=== PATIENT | female | born 1990 | race Caucasian/White ===

== ENCOUNTER 2017-08-21 21:15 | Inpatient (IN) | payer OTHER, MEDICAID ==
[~2017-08-21] VITALS: Ht 175.3 cm; Wt 114.8 kg
[2017-08-21] MEDS ORDERED: PROZ10 PO (21:29)
[2017-08-21 21:43] LABS: BASOPHILS # (AUTO) 0.07 K/uL (0.00-0.20); BASOPHILS % (AUTO) 0.7 % (0.0-2.0); EOSINOPHILS # (AUTO) 0.14 K/uL (0.00-0.70); EOSINOPHILS % (AUTO) 1.42 % (1.0-6.0); HEMOGLOBIN 15.6 g/dL (12.0-16.0); LYMPHOCYTES # (AUTO) 2.2 K/uL (1.0-4.8); LYMPHOCYTES % (AUTO) 21.9 % (22.0-44.0); MEAN CORPUSCULAR HEMOGLOBIN 31.2 pg (26.0-34.0); MEAN CORPUSCULAR HGB CONC 33.8 G/dL (31.0-37.0); MEAN CORPUSCULAR VOLUME 92 fL (80-100); MONOCYTES # (AUTO) 0.6 K/uL (0.1-1.0); MONOCYTES % (AUTO) 6.3 % (2.0-9.0); NEUTROPHILS % (AUTO) 69.6 % (40.0-70.0); PLATELET COUNT (AUTO) 300 K/uL (150-450); RED BLOOD CELL COUNT(AUTO) 4.99 MIL/uL (4.00-5.20); RED CELL DISTRIBUTION WIDTH 12.8 % (11.5-14.5); WHITE BLOOD COUNT (AUTO) 10.1 K/uL (4.5-11.0)
[2017-08-21 22:08] LABS: ANION GAP 11 mmol/L (8-16); CALCIUM, TOTAL 8.9 mg/dL (8.8-10.5); CARBON DIOXIDE 23 mmol/L (22-29); CHLORIDE 103 mmol/L (98-107); CREATININE 0.97 mg/dL (0.60-1.30); GLOMERULAR FILTR. RATE CALC > 60 mL/min (>60); POTASSIUM 4.1 mmol/L (3.5-5.1); SODIUM SERUM 137 mmol/L (136-145); UREA NITROGEN, BLOOD 13 mg/dL (7-18)
[2017-08-21 22:14] LABS: ALANINE AMINOTRANSFERASE 52 U/L (12-78); ALBUMIN 4.1 g/dL (3.4-5.0); ASPARTATE AMINOTRANSFERASE 27 U/L (15-37); BILIRUBIN,TOTAL 0.4 mg/dL (0.1-1.0); TOTAL PROTEIN, SERUM 7.3 g/dL (6.4-8.2)
[2017-08-21] MEDS ORDERED: LORazepam 2 MG TABLET PO ONE (23:00)
[2017-08-22] MEDS ORDERED: ZOLPIDEM TARTRATE 10 MG TABLET PO PRN
[2017-08-22] MEDS ORDERED: HALOPERIDOL 5 MG TABLET PO PRN
[2017-08-22 01:53] VITALS: BP 131/75
[2017-08-22] MEDS: ESTRADIOL 1 MG TABLET PO SCH (09:50)
[2017-08-22] MEDS: SPIRONOLACTONE 50 MG TABLET PO SCH ×2 (09:50→17:36)
[2017-08-22 09:52] LABS: APPEARANCE,URINE CLEAR (CLEAR); GLUCOSE, URINE (UA) NEGATIVE (NEGATIVE); KETONES,URINE 15 mg/dL (NEGATIVE); LEUKOCYTE ESTERASE ,URINE NEGATIVE (NEGATIVE); OCCULT BLOOD,URINE NEGATIVE (NEGATIVE); PH,URINE 5.5 (5.0-8.0); PROTEIN,URINE NEGATIVE (NEGATIVE)
[2017-08-22 09:54] LABS: ADD UA MICROSCOPIC YES
[2017-08-22 09:58] LABS: RBC,URINE None Seen /HPF (0-2); SQUAMOUS EPITHELIAL CELL,UR Few /LPF (None Seen)
[2017-08-22 12:57] VITALS: BP 112/71
[2017-08-22] MEDS: CITALOPRAM HYDROBROMIDE 20 MG TABLET PO SCH (16:00)
[2017-08-22 16:17] VITALS: BP 119/72
[2017-08-23 00:35] VITALS: BP 119/76
[2017-08-23] MEDS: SPIRONOLACTONE 50 MG TABLET PO SCH ×2 (08:14→16:50)
[2017-08-23] MEDS: ESTRADIOL 1 MG TABLET PO SCH (08:14)
[2017-08-23] MEDS: CITALOPRAM HYDROBROMIDE 20 MG TABLET PO SCH (09:00)
[2017-08-23 09:41] VITALS: BP 111/67
[2017-08-23] MEDS: LORazepam 2 MG TABLET PO PRN (20:24)
[2017-08-23 21:32] VITALS: BP 124/84
[2017-08-24 03:47] VITALS: BP 117/72
[2017-08-24] MEDS: LORazepam 2 MG TABLET PO PRN ×2 (03:47→20:27)
[2017-08-24 08:00] VITALS: BP 110/54
[2017-08-24] MEDS: CITALOPRAM HYDROBROMIDE 20 MG TABLET PO SCH ×2 (09:00→09:01)
[2017-08-24] MEDS: SPIRONOLACTONE 50 MG TABLET PO SCH ×2 (09:01→16:13)
[2017-08-24] MEDS: ESTRADIOL 1 MG TABLET PO SCH (09:01)
[2017-08-24 17:00] VITALS: BP 146/60
[2017-08-25 08:30] VITALS: BP 121/77
[2017-08-25] MEDS: SPIRONOLACTONE 50 MG TABLET PO SCH (08:42)
[2017-08-25] MEDS: CITALOPRAM HYDROBROMIDE 20 MG TABLET PO SCH (08:42)
[2017-08-25] MEDS: ESTRADIOL 1 MG TABLET PO SCH (08:42)
[2017-08-25] MEDS: LORazepam 2 MG TABLET PO PRN (12:50)
== END 2017-08-25 14:36 | disposition left against medical advice (07) | DRG 881 ==
LOC: EMS 21:18 → 3EI 08-22 00:45 → 3EX 08-23 09:36
PROVIDERS: ADMIT Psychiatry & Neurology Child & Adolescent Psychiatry; ATTEND Psychiatry & Neurology Child & Adolescent Psychiatry
DX: F32.9 Major depressive disorder, single episode, unspecified (principal); R45.851 Suicidal ideations; F12.90 Cannabis use, unspecified, uncomplicated; F64.9 Gender identity disorder, unspecified; G89.29 Other chronic pain; K59.00 Constipation, unspecified; Z79.890 Hormone replacement therapy; F41.9 Anxiety disorder, unspecified; Z84.89 Family history of other specified conditions; Z53.21 Procedure and treatment not carried out due to patient leaving prior to being seen by health care provider
CPT/HCPCS: 80307; 99285; G0480

== ENCOUNTER 2020-02-19 14:48 | Inpatient (IN) | payer MEDICAID, OTHER ==
[~2020-02-19] VITALS: Ht 175.3 cm; Wt 96.7 kg
[2020-02-19] MEDS ORDERED: SERT50TA12 PO (16:21)
[2020-02-19] MEDS ORDERED: SPIR50 PO (16:21)
[2020-02-19] MEDS ORDERED: HYD50 PO (16:22)
[2020-02-19] MEDS ORDERED: HALOPERIDOL 5 MG TABLET PO PRN (17:15)
[2020-02-19 17:36] VITALS: BP 129/65
[2020-02-19 22:08] VITALS: BP 131/74
[2020-02-19] MEDS: LORazepam 2 MG TABLET PO PRN (22:26)
[2020-02-20] MEDS: DULoxetine HCL 20 MG CAPSULE PO SCH (09:56)
[2020-02-20 10:10] LABS: BASOPHILS % (AUTO) 0.6 % (0.0-2.0); EOSINOPHILS % (AUTO) 1.1 % (1.0-6.0); HEMATOCRIT 45.5 % (36-46); HEMOGLOBIN 15.3 g/dL (12.0-16.0); LYMPHOCYTES # (AUTO) 1.5 K/uL (1.0-4.8); MEAN CORPUSCULAR HEMOGLOBIN 30.8 pg (26.0-34.0); MEAN CORPUSCULAR HGB CONC 33.7 G/dL (31.0-37.0); MEAN CORPUSCULAR VOLUME 91 fL (80-100); MONOCYTES # (AUTO) 0.5 K/uL (0.1-1.0); NEUTROPHILS # (AUTO) 4.1 K/uL (1.8-7.7); NEUTROPHILS % (AUTO) 66.3 % (40.0-70.0); PLATELET COUNT (AUTO) 244 K/uL (150-450); RED BLOOD CELL COUNT(AUTO) 4.99 MIL/uL (4.00-5.20); RED CELL DISTRIBUTION WIDTH 12.8 % (11.5-14.5)
[2020-02-20 10:14] LABS: HEMOGLOBIN A1C 5.3 % (3.8-5.6)
[2020-02-20 10:30] VITALS: BP 128/79
[2020-02-20 10:32] LABS: ALANINE AMINOTRANSFERASE 30 U/L (12-78); ALBUMIN 3.8 g/dL (3.4-5.0); ALKALINE PHOSPHATASE 38 U/L (46-116); ANION GAP 4 mmol/L (8-16); ASPARTATE AMINOTRANSFERASE 19 U/L (15-37); BILIRUBIN,TOTAL 0.4 mg/dL (0.1-1.0); CALCIUM, TOTAL 9.1 mg/dL (8.8-10.5); CARBON DIOXIDE 30 mmol/L (22-29); CHLORIDE 104 mmol/L (98-107); CHOL/HDL RATIO 3.7 (3.9-5.7); CHOLESTEROL 202 mg/dL (131-200); CREATININE 0.85 mg/dL (0.60-1.30); FREE T4 (FREE THYROXINE) 0.95 ng/dL (0.76-1.46); GLOMERULAR FILTR. RATE CALC > 60 mL/min (>60); GLUCOSE,RANDOM 115 mg/dL (70-110); HDL CHOLESTEROL 55 mg/dL (40-60); LDL CHOL (CALC.) 131 mg/dL (0-130); POTASSIUM 4.2 mmol/L (3.5-5.1); SODIUM SERUM 138 mmol/L (136-145); THYROID STIMULATING HORMONE 1.06 uIU/mL (0.36-3.74); TOTAL PROTEIN, SERUM 6.8 g/dL (6.4-8.2); TRIGLYCERIDES 81 mg/dL (15-150); UREA NITROGEN, BLOOD 15 mg/dL (7-18)
[2020-02-20] MEDS ORDERED: ESTR-95 PO (14:20)
[2020-02-20] MEDS: ESTRADIOL 1 MG TABLET PO SCH (16:34)
[2020-02-20] MEDS: SPIRONOLACTONE 50 MG TABLET PO SCH (16:34)
[2020-02-20 16:55] VITALS: BP 120/59
[2020-02-20 19:28] LABS: APPEARANCE,URINE CLEAR (CLEAR); BILIRUBIN,URINE NEGATIVE (NEGATIVE); GLUCOSE, URINE (UA) NEGATIVE (NEGATIVE); KETONES,URINE NEGATIVE (NEGATIVE); LEUKOCYTE ESTERASE ,URINE NEGATIVE (NEGATIVE); NITRATE,URINE NEGATIVE (NEGATIVE); OCCULT BLOOD,URINE NEGATIVE (NEGATIVE); PROTEIN,URINE NEGATIVE (NEGATIVE)
[2020-02-20 20:00] LABS: AMPHET/METH SCREEN,URINE NEGATIVE (NEGATIVE); BARBITURATE SCREEN, URINE NEGATIVE (NEGATIVE); BENZODIAZEPINES SCREEN,URINE NEGATIVE (NEGATIVE); CANNABINOID SCREEN,URINE POSITIVE (NEGATIVE); COCAINE SCREEN,URINE NEGATIVE (NEGATIVE); METHADONE SCREEN, URINE NEGATIVE (NEGATIVE); OPIATE SCREEN,URINE NEGATIVE (NEGATIVE)
[2020-02-20 20:05] LABS: PHENCYCLIDINE SCREEN,URINE NEGATIVE (NEGATIVE)
[2020-02-20] MEDS: LORazepam 2 MG TABLET PO PRN (20:55)
[2020-02-20] MEDS: ZOLPIDEM TARTRATE 10 MG TABLET PO PRN (22:28)
[2020-02-21] MEDS: DULoxetine HCL 20 MG CAPSULE PO SCH (09:21)
[2020-02-21] MEDS: ESTRADIOL 1 MG TABLET PO SCH ×3 (09:21→16:32)
[2020-02-21] MEDS: SPIRONOLACTONE 50 MG TABLET PO SCH ×2 (09:22→16:32)
[2020-02-21 09:56] VITALS: BP 121/72
[2020-02-21 17:26] VITALS: BP 116/71
[2020-02-21] MEDS: ZOLPIDEM TARTRATE 10 MG TABLET PO PRN (21:05)
[2020-02-22 04:08] VITALS: BP 128/73
[2020-02-22] MEDS: LORazepam 2 MG TABLET PO PRN (04:12)
[2020-02-22] MEDS: SPIRONOLACTONE 50 MG TABLET PO SCH ×2 (08:35→16:27)
[2020-02-22] MEDS: DULoxetine HCL 20 MG CAPSULE PO SCH (08:35)
[2020-02-22] MEDS: ESTRADIOL 1 MG TABLET PO SCH ×3 (08:36→16:27)
[2020-02-22 09:43] VITALS: BP 111/64
[2020-02-22 16:42] VITALS: BP 108/58
[2020-02-22] MEDS ORDERED: TraZODone HCL 50 MG TABLET PO SCH (21:00)
[2020-02-23 08:00] VITALS: BP 125/75
[2020-02-23] MEDS: DULoxetine HCL 20 MG CAPSULE PO SCH (09:01)
[2020-02-23] MEDS: SPIRONOLACTONE 50 MG TABLET PO SCH ×2 (09:02→16:27)
[2020-02-23] MEDS: ESTRADIOL 1 MG TABLET PO SCH ×3 (09:03→16:27)
[2020-02-23 16:28] VITALS: BP 106/65
[2020-02-23] MEDS: TraZODone HCL 100 MG TABLET PO SCH (20:29)
[2020-02-24 08:00] VITALS: BP 109/70
[2020-02-24] MEDS: DULoxetine HCL 20 MG CAPSULE PO SCH (08:26)
[2020-02-24] MEDS: ESTRADIOL 1 MG TABLET PO SCH ×3 (08:26→16:08)
[2020-02-24] MEDS: SPIRONOLACTONE 50 MG TABLET PO SCH ×2 (08:26→16:08)
[2020-02-24 16:31] VITALS: BP 117/56
[2020-02-24] MEDS: TraZODone HCL 100 MG TABLET PO SCH (20:14)
[2020-02-25] MEDS: SPIRONOLACTONE 50 MG TABLET PO SCH ×2 (08:27→16:22)
[2020-02-25] MEDS: ESTRADIOL 1 MG TABLET PO SCH ×3 (08:27→16:22)
[2020-02-25] MEDS: DULoxetine HCL 20 MG CAPSULE PO SCH (08:29)
[2020-02-25 10:49] VITALS: BP 119/66
[2020-02-25 17:51] VITALS: BP 114/58
[2020-02-25] MEDS: TraZODone HCL 100 MG TABLET PO SCH (20:21)
[2020-02-26 04:35] VITALS: BP 109/59
[2020-02-26] MEDS: ESTRADIOL 1 MG TABLET PO SCH ×3 (09:38→16:26)
[2020-02-26] MEDS: DULoxetine HCL 20 MG CAPSULE PO SCH (09:38)
[2020-02-26] MEDS: SPIRONOLACTONE 50 MG TABLET PO SCH ×2 (09:38→16:25)
[2020-02-26 10:32] VITALS: BP 102/62
[2020-02-26 16:35] VITALS: BP 110/60
[2020-02-26] MEDS: HYPROMELLOSE 0.5% 15 ML OPHTHALMIC SOLUTION OU PRN (17:27)
[2020-02-26] MEDS: TraZODone HCL 100 MG TABLET PO SCH (20:12)
[2020-02-27 00:30] VITALS: BP 115/73
[2020-02-27] MEDS: LORazepam 2 MG TABLET PO PRN ×2 (00:34→20:07)
[2020-02-27 08:30] VITALS: BP 98/53
[2020-02-27] MEDS: ESTRADIOL 1 MG TABLET PO SCH ×3 (09:07→16:23)
[2020-02-27] MEDS: DULoxetine HCL 20 MG CAPSULE PO SCH (09:07)
[2020-02-27] MEDS: SPIRONOLACTONE 50 MG TABLET PO SCH ×2 (09:08→16:23)
[2020-02-27] MEDS: HYPROMELLOSE 0.5% 15 ML OPHTHALMIC SOLUTION OU PRN ×2 (14:00→20:05)
[2020-02-27] MEDS: GABAPENTIN 100 MG CAPSULE PO SCH (16:25)
[2020-02-27 16:37] VITALS: BP 114/56
[2020-02-27] MEDS: TraZODone HCL 100 MG TABLET PO SCH (20:04)
[2020-02-28 08:00] VITALS: BP 120/69
[2020-02-28] MEDS: GABAPENTIN 100 MG CAPSULE PO SCH ×3 (09:00→17:00)
[2020-02-28] MEDS: SPIRONOLACTONE 50 MG TABLET PO SCH ×2 (09:08→16:31)
[2020-02-28] MEDS: ESTRADIOL 1 MG TABLET PO SCH ×3 (09:09→16:30)
[2020-02-28] MEDS: DULoxetine HCL 20 MG CAPSULE PO SCH (09:10)
[2020-02-28 17:05] VITALS: BP 141/49
[2020-02-28] MEDS: TraZODone HCL 100 MG TABLET PO SCH (20:49)
[2020-02-28] MEDS: LORazepam 2 MG TABLET PO PRN (20:50)
[2020-02-29] MEDS: GABAPENTIN 100 MG CAPSULE PO SCH ×2 (09:55→16:08)
[2020-02-29] MEDS: SPIRONOLACTONE 50 MG TABLET PO SCH ×2 (09:56→16:08)
[2020-02-29] MEDS: ESTRADIOL 1 MG TABLET PO SCH ×3 (09:56→16:08)
[2020-02-29] MEDS: DULoxetine HCL 20 MG CAPSULE PO SCH (10:01)
[2020-02-29 10:10] VITALS: BP 107/64
[2020-02-29 16:13] VITALS: BP 111/73
[2020-02-29] MEDS: HYPROMELLOSE 0.5% 15 ML OPHTHALMIC SOLUTION OU PRN (18:02)
[2020-02-29] MEDS: TraZODone HCL 100 MG TABLET PO SCH (20:55)
[2020-02-29] MEDS: LORazepam 2 MG TABLET PO PRN (20:55)
[2020-03-01] MEDS: DULoxetine HCL 20 MG CAPSULE PO SCH (09:04)
[2020-03-01] MEDS: GABAPENTIN 100 MG CAPSULE PO SCH ×2 (09:05→16:42)
[2020-03-01] MEDS: SPIRONOLACTONE 50 MG TABLET PO SCH ×2 (09:05→16:42)
[2020-03-01] MEDS: ESTRADIOL 1 MG TABLET PO SCH ×3 (09:06→16:42)
[2020-03-01 10:12] VITALS: BP 125/67
[2020-03-01 19:54] VITALS: BP 114/68
[2020-03-01] MEDS: TraZODone HCL 100 MG TABLET PO SCH (20:11)
[2020-03-01] MEDS: LORazepam 2 MG TABLET PO PRN (20:13)
[2020-03-02 08:14] VITALS: BP 129/73
[2020-03-02] MEDS: DULoxetine HCL 20 MG CAPSULE PO SCH (08:37)
[2020-03-02] MEDS: GABAPENTIN 100 MG CAPSULE PO SCH ×2 (08:37→16:45)
[2020-03-02] MEDS: SPIRONOLACTONE 50 MG TABLET PO SCH ×2 (08:37→16:45)
[2020-03-02] MEDS: ESTRADIOL 1 MG TABLET PO SCH ×3 (08:38→16:45)
[2020-03-02 16:25] VITALS: BP 101/55
[2020-03-02] MEDS: HYPROMELLOSE 0.5% 15 ML OPHTHALMIC SOLUTION OU PRN (18:55)
[2020-03-02] MEDS: TraZODone HCL 100 MG TABLET PO SCH (20:00)
[2020-03-02] MEDS: LORazepam 2 MG TABLET PO PRN (20:00)
[2020-03-03] MEDS: GABAPENTIN 300 MG CAPSULE PO SCH ×2 (09:15→16:35)
[2020-03-03] MEDS: ESTRADIOL 1 MG TABLET PO SCH ×3 (09:15→16:35)
[2020-03-03] MEDS: SPIRONOLACTONE 50 MG TABLET PO SCH ×2 (09:16→16:35)
[2020-03-03] MEDS: DULoxetine HCL 60 MG CAPSULE PO SCH (09:17)
[2020-03-03 09:41] VITALS: BP 109/63
[2020-03-03 16:11] VITALS: BP 108/67
[2020-03-03] MEDS: LORazepam 2 MG TABLET PO PRN (20:17)
[2020-03-03] MEDS: TraZODone HCL 100 MG TABLET PO SCH (20:17)
[2020-03-04 08:27] VITALS: BP 113/70
[2020-03-04] MEDS: SPIRONOLACTONE 50 MG TABLET PO SCH ×2 (09:08→16:00)
[2020-03-04] MEDS: DULoxetine HCL 60 MG CAPSULE PO SCH (09:09)
[2020-03-04] MEDS: ESTRADIOL 1 MG TABLET PO SCH ×3 (09:09→16:00)
[2020-03-04] MEDS: GABAPENTIN 300 MG CAPSULE PO SCH ×2 (09:09→16:01)
[2020-03-04 16:08] VITALS: BP 106/70
[2020-03-04] MEDS ORDERED: FAMOTIDINE 20 MG TABLET PO ONE (21:30)
[2020-03-04] MEDS: TraZODone HCL 100 MG TABLET PO SCH (21:38)
[2020-03-04] MEDS: LORazepam 2 MG TABLET PO PRN (22:00)
[2020-03-05] MEDS: FAMOTIDINE 20 MG TABLET PO SCH (08:17)
[2020-03-05] MEDS: GABAPENTIN 300 MG CAPSULE PO SCH ×2 (08:17→16:18)
[2020-03-05] MEDS: SPIRONOLACTONE 50 MG TABLET PO SCH ×2 (08:18→16:18)
[2020-03-05] MEDS: ESTRADIOL 1 MG TABLET PO SCH ×3 (08:18→16:18)
[2020-03-05] MEDS: DULoxetine HCL 60 MG CAPSULE PO SCH (08:19)
[2020-03-05 08:33] VITALS: BP 124/78
[2020-03-05 16:10] VITALS: BP 109/70
[2020-03-05] MEDS: TraZODone HCL 100 MG TABLET PO SCH (20:47)
[2020-03-05] MEDS: LORazepam 2 MG TABLET PO PRN (20:48)
[2020-03-06] MEDS: GABAPENTIN 300 MG CAPSULE PO SCH ×2 (08:23→16:09)
[2020-03-06] MEDS: ESTRADIOL 1 MG TABLET PO SCH ×3 (08:23→16:09)
[2020-03-06] MEDS: DULoxetine HCL 60 MG CAPSULE PO SCH (08:23)
[2020-03-06] MEDS: SPIRONOLACTONE 50 MG TABLET PO SCH ×2 (08:24→16:09)
[2020-03-06] MEDS: FAMOTIDINE 20 MG TABLET PO SCH (08:25)
[2020-03-06 09:00] VITALS: BP 118/83
[2020-03-06] MEDS ORDERED: HALOPERIDOL LACTATE 5 MG/ML VIAL ONE (17:56)
[2020-03-06] MEDS ORDERED: DiphenhydrAMINE HCL 50 MG/ML VIAL ONE (17:56)
[2020-03-06] MEDS ORDERED: LORazepam 2 MG/ML VIAL IM ONE (18:00)
[2020-03-06] MEDS ORDERED: HALOPERIDOL LACTATE 5 MG/ML VIAL IM ONE (18:00)
[2020-03-06] MEDS ORDERED: DiphenhydrAMINE HCL 50 MG/ML VIAL IM ONE (18:00)
[2020-03-06 19:33] VITALS: BP 107/65
[2020-03-06] MEDS: TraZODone HCL 100 MG TABLET PO SCH (20:00)
[2020-03-07] MEDS: GABAPENTIN 300 MG CAPSULE PO SCH (08:39)
[2020-03-07] MEDS: DULoxetine HCL 60 MG CAPSULE PO SCH (08:39)
[2020-03-07] MEDS: ESTRADIOL 1 MG TABLET PO SCH ×2 (08:39→12:47)
[2020-03-07] MEDS: FAMOTIDINE 20 MG TABLET PO SCH (08:39)
[2020-03-07] MEDS: SPIRONOLACTONE 50 MG TABLET PO SCH (08:40)
[2020-03-07 09:45] VITALS: BP 107/69
[2020-03-07] MEDS ORDERED: DULO60CA44 PO (12:19)
[2020-03-07] MEDS ORDERED: GABA-1181 PO (12:19)
[2020-03-07] MEDS ORDERED: TRAZ-257 PO (12:19)
[2020-03-07] MEDS ORDERED: FAMO20 PO (12:22)
== END 2020-03-07 14:59 | disposition home or self-care (01) | DRG 885 ==
LOC: 3EI 17:20
PROVIDERS: ADMIT Psychiatry & Neurology Psychiatry; ATTEND Psychiatry & Neurology Psychiatry
DX: F33.2 Major depressive disorder, recurrent severe without psychotic features (principal); R45.851 Suicidal ideations; F12.10 Cannabis abuse, uncomplicated; F64.1 Dual role transvestism; E78.00 Pure hypercholesterolemia, unspecified; F22 Delusional disorders; F41.9 Anxiety disorder, unspecified; Z59.0 Homelessness; Z79.890 Hormone replacement therapy; Z87.891 Personal history of nicotine dependence; Z91.5 Personal history of self-harm
CPT/HCPCS: 80307; 83036; 84439; 84443; 87081; J1200; J1630; J2060

== ENCOUNTER 2020-02-19 18:42 | Emergency (ER) | payer MEDICAID, OTHER ==
[~2020-02-19] VITALS: Ht 175.3 cm; Wt 97.7 kg
[~2020-02-19 18:42] MED LIST: HYD50 PO; SERT50TA12 PO; SPIR50 PO
[2020-02-19 21:12] LABS: BASOPHILS % (AUTO) 0.3 % (0.0-2.0); EOSINOPHILS % (AUTO) 0.5 % (1.0-6.0); HEMATOCRIT 48.2 % (36-46); HEMOGLOBIN 16.8 g/dL (12.0-16.0); LYMPHOCYTES # (AUTO) 2.3 K/uL (1.0-4.8); LYMPHOCYTES % (AUTO) 20.6 % (22.0-44.0); MEAN CORPUSCULAR HEMOGLOBIN 31.8 pg (26.0-34.0); MEAN CORPUSCULAR HGB CONC 34.9 G/dL (31.0-37.0); MEAN CORPUSCULAR VOLUME 91 fL (80-100); MONOCYTES # (AUTO) 0.9 K/uL (0.1-1.0); MONOCYTES % (AUTO) 7.8 % (2.0-9.0); NEUTROPHILS % (AUTO) 70.8 % (40.0-70.0); PLATELET COUNT (AUTO) 277 K/uL (150-450); RED BLOOD CELL COUNT(AUTO) 5.29 MIL/uL (4.00-5.20); RED CELL DISTRIBUTION WIDTH 12.7 % (11.5-14.5)
[2020-02-19 21:22] LABS: ANION GAP 6 mmol/L (8-16); CALCIUM, TOTAL 9.4 mg/dL (8.8-10.5); CARBON DIOXIDE 30 mmol/L (22-29); CHLORIDE 105 mmol/L (98-107); CREATININE 0.89 mg/dL (0.60-1.30); GLOMERULAR FILTR. RATE CALC > 60 mL/min (>60); GLUCOSE,RANDOM 101 mg/dL (70-110); POTASSIUM 3.4 mmol/L (3.5-5.1); SODIUM SERUM 141 mmol/L (136-145); UREA NITROGEN, BLOOD 16 mg/dL (7-18)
[2020-02-19 21:34] LABS: ALANINE AMINOTRANSFERASE 32 U/L (12-78); ALBUMIN 4.2 g/dL (3.4-5.0); ALKALINE PHOSPHATASE 45 U/L (46-116); ASPARTATE AMINOTRANSFERASE 16 U/L (15-37); BILIRUBIN,TOTAL 0.4 mg/dL (0.1-1.0); HCG,QUANTITATIVE < 1 mIU/mL (0-6); TOTAL PROTEIN, SERUM 7.6 g/dL (6.4-8.2)
[2020-02-19 21:48] LABS: AMPHET/METH SCREEN,URINE NEGATIVE (NEGATIVE); BARBITURATE SCREEN, URINE NEGATIVE (NEGATIVE); BENZODIAZEPINES SCREEN,URINE NEGATIVE (NEGATIVE); CANNABINOID SCREEN,URINE POSITIVE (NEGATIVE); COCAINE SCREEN,URINE NEGATIVE (NEGATIVE); METHADONE SCREEN, URINE NEGATIVE (NEGATIVE); OPIATE SCREEN,URINE NEGATIVE (NEGATIVE); PHENCYCLIDINE SCREEN,URINE NEGATIVE (NEGATIVE)
[2020-02-19 21:59] VITALS: BP 114/83
[2020-02-20] MEDS ORDERED: ESTR-95 PO (14:20)
== END 2020-02-19 22:18 | disposition other institution (70) ==
LOC: EMS 18:42
DX: F33.9 Major depressive disorder, recurrent, unspecified (principal); F41.9 Anxiety disorder, unspecified; F12.90 Cannabis use, unspecified, uncomplicated
CPT/HCPCS: 36415; 80053; 80307; 84702; 85025; 99285; G0480

== ENCOUNTER 2020-03-11 21:34 | Inpatient (IN) | payer MEDICAID ==
[~2020-03-11] VITALS: Ht 175.3 cm; Wt 97.4 kg
[~2020-03-11 21:34] MED LIST changes: +DULO60CA44 PO; +ESTR-95 PO; +FAMO20 PO; +GABA-1181 PO; -HYD50 PO; -SERT50TA12 PO; +TRAZ-257 PO
[2020-03-11 22:50] LABS: BASOPHILS % (AUTO) 0.6 % (0.0-2.0); EOSINOPHILS % (AUTO) 4.7 % (1.0-6.0); HEMATOCRIT 42.6 % (36-46); HEMOGLOBIN 14.3 g/dL (12.0-16.0); LYMPHOCYTES # (AUTO) 2.5 K/uL (1.0-4.8); LYMPHOCYTES % (AUTO) 26.2 % (22.0-44.0); MEAN CORPUSCULAR HEMOGLOBIN 31.1 pg (26.0-34.0); MEAN CORPUSCULAR HGB CONC 33.6 G/dL (31.0-37.0); MEAN CORPUSCULAR VOLUME 92 fL (80-100); MONOCYTES # (AUTO) 0.8 K/uL (0.1-1.0); MONOCYTES % (AUTO) 8.3 % (2.0-9.0); NEUTROPHILS # (AUTO) 5.6 K/uL (1.8-7.7); NEUTROPHILS % (AUTO) 60.2 % (40.0-70.0); PLATELET COUNT (AUTO) 244 K/uL (150-450); RED BLOOD CELL COUNT(AUTO) 4.62 MIL/uL (4.00-5.20)
[2020-03-11 22:55] LABS: ANION GAP 9 mmol/L (8-16); CALCIUM, TOTAL 8.6 mg/dL (8.8-10.5); CARBON DIOXIDE 26 mmol/L (22-29); CHLORIDE 103 mmol/L (98-107); CREATININE 0.91 mg/dL (0.60-1.30); GLOMERULAR FILTR. RATE CALC > 60 mL/min (>60); GLUCOSE,RANDOM 95 mg/dL (70-110); POTASSIUM 3.9 mmol/L (3.5-5.1); SODIUM SERUM 138 mmol/L (136-145); UREA NITROGEN, BLOOD 16 mg/dL (7-18)
[2020-03-11 23:06] LABS: ALANINE AMINOTRANSFERASE 29 U/L (12-78); ALBUMIN 3.8 g/dL (3.4-5.0); ALKALINE PHOSPHATASE 44 U/L (46-116); ASPARTATE AMINOTRANSFERASE 15 U/L (15-37); BILIRUBIN,TOTAL 0.2 mg/dL (0.1-1.0); HCG,QUANTITATIVE < 1 mIU/mL (0-6)
[2020-03-12] MEDS: ZOLPIDEM TARTRATE 10 MG TABLET PO PRN (00:53)
[2020-03-12] MEDS ORDERED: TraZODone HCL 50 MG TABLET PO ONE (01:00)
[2020-03-12 03:02] LABS: CHOL/HDL RATIO 3.6 (3.9-5.7); CHOLESTEROL 178 mg/dL (131-200); HDL CHOLESTEROL 49 mg/dL (40-60); LDL CHOL (CALC.) 110 mg/dL (0-130); TRIGLYCERIDES 95 mg/dL (15-150)
[2020-03-12 09:53] LABS: APPEARANCE,URINE CLEAR (CLEAR); BILIRUBIN,URINE NEGATIVE (NEGATIVE); GLUCOSE, URINE (UA) NEGATIVE (NEGATIVE); KETONES,URINE NEGATIVE (NEGATIVE); LEUKOCYTE ESTERASE ,URINE NEGATIVE (NEGATIVE); NITRATE,URINE NEGATIVE (NEGATIVE); OCCULT BLOOD,URINE NEGATIVE (NEGATIVE); PROTEIN,URINE NEGATIVE (NEGATIVE); UROBILINOGEN,URINE 0.2 mg/dL (<=1.0)
[2020-03-12 09:58] LABS: AMPHET/METH SCREEN,URINE NEGATIVE (NEGATIVE); BARBITURATE SCREEN, URINE NEGATIVE (NEGATIVE); BENZODIAZEPINES SCREEN,URINE NEGATIVE (NEGATIVE); CANNABINOID SCREEN,URINE POSITIVE (NEGATIVE); COCAINE SCREEN,URINE NEGATIVE (NEGATIVE); METHADONE SCREEN, URINE NEGATIVE (NEGATIVE)
[2020-03-12 10:07] LABS: OPIATE SCREEN,URINE NEGATIVE (NEGATIVE)
[2020-03-12 10:11] LABS: PHENCYCLIDINE SCREEN,URINE NEGATIVE (NEGATIVE)
[2020-03-12] MEDS ORDERED: LORazepam 2 MG/ML VIAL IM ONE (10:30)
[2020-03-12] MEDS ORDERED: DiphenhydrAMINE HCL 50 MG/ML VIAL IM ONE (10:30)
[2020-03-12] MEDS ORDERED: HALOPERIDOL LACTATE 5 MG/ML VIAL IM ONE (10:30)
[2020-03-12 14:30] VITALS: BP 125/67
[2020-03-12 14:54] VITALS: BP 125/67
[2020-03-12] MEDS: GABAPENTIN 300 MG CAPSULE PO SCH (16:47)
[2020-03-12 17:11] VITALS: BP 95/52
[2020-03-12] MEDS: TraZODone HCL 100 MG TABLET PO SCH (20:27)
[2020-03-13 09:05] VITALS: BP 140/60
[2020-03-13] MEDS: DULoxetine HCL 60 MG CAPSULE PO SCH (09:23)
[2020-03-13] MEDS: GABAPENTIN 300 MG CAPSULE PO SCH ×2 (09:23→17:20)
[2020-03-13 16:48] VITALS: BP 112/70
[2020-03-13] MEDS: ESTRADIOL 1 MG TABLET PO SCH (17:15)
[2020-03-13] MEDS: SPIRONOLACTONE 50 MG TABLET PO SCH (17:15)
[2020-03-13] MEDS: TraZODone HCL 100 MG TABLET PO SCH (20:47)
[2020-03-13 20:54] VITALS: BP 115/67
[2020-03-13] MEDS: LORazepam 2 MG TABLET PO PRN (20:56)
[2020-03-14] MEDS: SPIRONOLACTONE 50 MG TABLET PO SCH ×2 (09:32→17:39)
[2020-03-14] MEDS: ESTRADIOL 1 MG TABLET PO SCH ×3 (09:32→17:38)
[2020-03-14] MEDS: DULoxetine HCL 60 MG CAPSULE PO SCH (09:33)
[2020-03-14] MEDS: GABAPENTIN 300 MG CAPSULE PO SCH ×2 (09:33→17:38)
[2020-03-14] MEDS: LORazepam 2 MG TABLET PO PRN (09:33)
[2020-03-14] MEDS ORDERED: DiphenhydrAMINE HCL 50 MG/ML VIAL IM ONE (16:15)
[2020-03-14] MEDS ORDERED: LORazepam 2 MG/ML VIAL IM ONE (16:15)
[2020-03-14] MEDS ORDERED: HALOPERIDOL LACTATE 5 MG/ML VIAL IM ONE (16:15)
[2020-03-14 17:39] VITALS: BP 115/68
[2020-03-14] MEDS: BACITRACIN 28.4 GM OINTMENT TP SCH (18:49)
[2020-03-14] MEDS: TraZODone HCL 100 MG TABLET PO SCH (21:00)
[2020-03-15] MEDS: SPIRONOLACTONE 50 MG TABLET PO SCH ×2 (09:54→16:43)
[2020-03-15] MEDS: ESTRADIOL 1 MG TABLET PO SCH ×3 (09:54→16:43)
[2020-03-15] MEDS: BACITRACIN 28.4 GM OINTMENT TP SCH ×2 (09:54→16:43)
[2020-03-15] MEDS: GABAPENTIN 300 MG CAPSULE PO SCH ×2 (09:54→16:43)
[2020-03-15] MEDS: DULoxetine HCL 60 MG CAPSULE PO SCH (09:54)
[2020-03-15] MEDS: LORazepam 2 MG TABLET PO PRN (09:55)
[2020-03-15 18:39] VITALS: BP 111/62
[2020-03-15] MEDS: TraZODone HCL 100 MG TABLET PO SCH (20:21)
[2020-03-15] MEDS: ZOLPIDEM TARTRATE 10 MG TABLET PO PRN (20:39)
[2020-03-16] MEDS: LORazepam 2 MG TABLET PO PRN ×2 (03:56→08:12)
[2020-03-16 03:58] VITALS: BP 128/69
[2020-03-16] MEDS: SPIRONOLACTONE 50 MG TABLET PO SCH ×2 (08:09→15:59)
[2020-03-16] MEDS: ESTRADIOL 1 MG TABLET PO SCH ×3 (08:09→15:59)
[2020-03-16] MEDS: DULoxetine HCL 60 MG CAPSULE PO SCH (08:10)
[2020-03-16] MEDS: GABAPENTIN 300 MG CAPSULE PO SCH ×2 (08:10→15:59)
[2020-03-16] MEDS: BACITRACIN 28.4 GM OINTMENT TP SCH ×2 (08:11→16:00)
[2020-03-16 09:16] VITALS: BP 108/61
[2020-03-16 09:42] VITALS: BP 108/51
[2020-03-16] MEDS: IBUPROFEN 400 MG TABLET PO PRN (09:42)
[2020-03-16 16:00] VITALS: BP 107/62
[2020-03-16] MEDS: TraZODone HCL 100 MG TABLET PO SCH (20:09)
[2020-03-16] MEDS: ZOLPIDEM TARTRATE 10 MG TABLET PO PRN (20:11)
[2020-03-17 02:27] VITALS: BP 100/65
[2020-03-17] MEDS: LORazepam 2 MG TABLET PO PRN ×3 (02:29→19:31)
[2020-03-17] MEDS: GABAPENTIN 300 MG CAPSULE PO SCH ×2 (08:43→18:00)
[2020-03-17] MEDS: SPIRONOLACTONE 50 MG TABLET PO SCH ×2 (08:43→17:00)
[2020-03-17] MEDS: ESTRADIOL 1 MG TABLET PO SCH ×3 (08:43→18:00)
[2020-03-17] MEDS: BACITRACIN 28.4 GM OINTMENT TP SCH ×2 (08:43→18:00)
[2020-03-17] MEDS: DULoxetine HCL 60 MG CAPSULE PO SCH (08:43)
[2020-03-17] MEDS: HALOPERIDOL 5 MG TABLET PO PRN (08:45)
[2020-03-17 09:16] VITALS: BP 117/71
[2020-03-17 17:04] VITALS: BP 104/67
[2020-03-17 19:25] VITALS: BP 117/77
[2020-03-17] MEDS: TraZODone HCL 100 MG TABLET PO SCH (20:26)
[2020-03-18] MEDS: GABAPENTIN 300 MG CAPSULE PO SCH ×2 (08:03→16:48)
[2020-03-18] MEDS: BACITRACIN 28.4 GM OINTMENT TP SCH ×2 (08:03→16:49)
[2020-03-18] MEDS: ESTRADIOL 1 MG TABLET PO SCH ×3 (08:03→16:48)
[2020-03-18] MEDS: DULoxetine HCL 60 MG CAPSULE PO SCH (08:03)
[2020-03-18] MEDS: SPIRONOLACTONE 50 MG TABLET PO SCH ×2 (08:03→16:47)
[2020-03-18 08:47] VITALS: BP 144/76
[2020-03-18 16:15] VITALS: BP 113/67
[2020-03-18] MEDS: TraZODone HCL 100 MG TABLET PO SCH (20:42)
[2020-03-18] MEDS: LORazepam 2 MG TABLET PO PRN (20:42)
[2020-03-19] MEDS: LORazepam 2 MG TABLET PO PRN ×2 (04:48→15:45)
[2020-03-19 05:36] VITALS: BP 113/67
[2020-03-19] MEDS: BACITRACIN 28.4 GM OINTMENT TP SCH ×2 (08:14→17:54)
[2020-03-19] MEDS: ESTRADIOL 1 MG TABLET PO SCH ×3 (08:14→17:54)
[2020-03-19] MEDS: GABAPENTIN 300 MG CAPSULE PO SCH ×2 (08:14→17:54)
[2020-03-19] MEDS: DULoxetine HCL 60 MG CAPSULE PO SCH (08:14)
[2020-03-19] MEDS: SPIRONOLACTONE 50 MG TABLET PO SCH ×2 (08:15→17:54)
[2020-03-19 09:50] VITALS: BP 141/90
[2020-03-19] MEDS: HALOPERIDOL 5 MG TABLET PO PRN (15:45)
[2020-03-19 16:11] VITALS: BP 125/80
[2020-03-19] MEDS: IBUPROFEN 400 MG TABLET PO PRN (16:27)
[2020-03-19] MEDS: TraZODone HCL 100 MG TABLET PO SCH (20:44)
[2020-03-20 04:40] VITALS: BP 117/61
[2020-03-20] MEDS: LORazepam 2 MG TABLET PO PRN ×3 (04:41→20:03)
[2020-03-20] MEDS: DULoxetine HCL 60 MG CAPSULE PO SCH (08:02)
[2020-03-20] MEDS: SPIRONOLACTONE 50 MG TABLET PO SCH ×2 (08:02→15:57)
[2020-03-20] MEDS: ESTRADIOL 1 MG TABLET PO SCH ×3 (08:02→15:58)
[2020-03-20] MEDS: GABAPENTIN 300 MG CAPSULE PO SCH ×2 (08:02→15:58)
[2020-03-20] MEDS: BACITRACIN 28.4 GM OINTMENT TP SCH ×2 (09:00→16:00)
[2020-03-20 09:07] VITALS: BP 116/72
[2020-03-20] MEDS: IBUPROFEN 400 MG TABLET PO PRN ×2 (09:27→16:25)
[2020-03-20 16:26] VITALS: BP 117/63
[2020-03-20] MEDS: TraZODone HCL 100 MG TABLET PO SCH (20:03)
[2020-03-20] MEDS: ZOLPIDEM TARTRATE 10 MG TABLET PO PRN (21:02)
[2020-03-21] MEDS: ESTRADIOL 1 MG TABLET PO SCH ×4 (08:15→16:31)
[2020-03-21] MEDS: GABAPENTIN 300 MG CAPSULE PO SCH ×3 (08:15→16:30)
[2020-03-21] MEDS: SPIRONOLACTONE 50 MG TABLET PO SCH ×3 (08:15→16:30)
[2020-03-21] MEDS: DULoxetine HCL 60 MG CAPSULE PO SCH (08:15)
[2020-03-21] MEDS: BACITRACIN 28.4 GM OINTMENT TP SCH ×3 (08:16→17:00)
[2020-03-21] MEDS: IBUPROFEN 400 MG TABLET PO PRN ×2 (08:38→16:30)
[2020-03-21 08:39] VITALS: BP 118/78
[2020-03-21] MEDS: LORazepam 2 MG TABLET PO PRN ×2 (08:39→12:43)
[2020-03-21] MEDS: HALOPERIDOL 5 MG TABLET PO PRN ×2 (08:39→12:43)
[2020-03-21 08:55] VITALS: BP 118/78
[2020-03-21 16:33] VITALS: BP 107/61
[2020-03-21] MEDS: TraZODone HCL 100 MG TABLET PO SCH (21:49)
[2020-03-22] MEDS: ZOLPIDEM TARTRATE 10 MG TABLET PO PRN (01:42)
[2020-03-22] MEDS: LORazepam 2 MG TABLET PO PRN ×2 (01:42→17:06)
[2020-03-22 07:24] VITALS: BP 124/67
[2020-03-22] MEDS: IBUPROFEN 400 MG TABLET PO PRN ×2 (07:24→21:01)
[2020-03-22 08:34] VITALS: BP 124/67
[2020-03-22] MEDS: GABAPENTIN 300 MG CAPSULE PO SCH ×2 (08:34→16:41)
[2020-03-22] MEDS: SPIRONOLACTONE 50 MG TABLET PO SCH ×2 (08:34→16:42)
[2020-03-22] MEDS: ESTRADIOL 1 MG TABLET PO SCH ×3 (08:34→16:42)
[2020-03-22] MEDS: DULoxetine HCL 60 MG CAPSULE PO SCH (08:34)
[2020-03-22] MEDS: BACITRACIN 28.4 GM OINTMENT TP SCH ×2 (08:40→16:42)
[2020-03-22 17:32] VITALS: BP 120/67
[2020-03-22 20:57] VITALS: BP 113/74
[2020-03-22] MEDS: TraZODone HCL 100 MG TABLET PO SCH (21:01)
[2020-03-23 08:00] VITALS: BP 122/65
[2020-03-23] MEDS: GABAPENTIN 300 MG CAPSULE PO SCH ×2 (08:30→17:30)
[2020-03-23] MEDS: ESTRADIOL 1 MG TABLET PO SCH ×3 (08:30→17:30)
[2020-03-23] MEDS: DULoxetine HCL 60 MG CAPSULE PO SCH (08:30)
[2020-03-23] MEDS: SPIRONOLACTONE 50 MG TABLET PO SCH ×2 (08:30→17:29)
[2020-03-23] MEDS: HYPROMELLOSE 0.5% 15 ML OPHTHALMIC SOLUTION OU PRN (08:31)
[2020-03-23] MEDS: BACITRACIN 28.4 GM OINTMENT TP SCH ×2 (08:31→17:00)
[2020-03-23] MEDS: LORazepam 2 MG TABLET PO PRN (11:56)
[2020-03-23] MEDS: HALOPERIDOL 5 MG TABLET PO PRN (11:56)
[2020-03-23 17:50] VITALS: BP 136/71
[2020-03-23] MEDS: TraZODone HCL 100 MG TABLET PO SCH (21:04)
[2020-03-24] MEDS: LORazepam 2 MG TABLET PO PRN ×2 (04:34→20:43)
[2020-03-24 04:39] VITALS: BP 130/92
[2020-03-24] MEDS: DULoxetine HCL 60 MG CAPSULE PO SCH (08:12)
[2020-03-24] MEDS: GABAPENTIN 300 MG CAPSULE PO SCH ×2 (08:12→15:59)
[2020-03-24] MEDS: SPIRONOLACTONE 50 MG TABLET PO SCH ×2 (08:13→15:59)
[2020-03-24] MEDS: ESTRADIOL 1 MG TABLET PO SCH ×3 (08:13→15:59)
[2020-03-24] MEDS: BACITRACIN 28.4 GM OINTMENT TP SCH ×2 (08:14→15:59)
[2020-03-24 09:24] VITALS: BP 104/59
[2020-03-24 16:06] VITALS: BP 136/76
[2020-03-24] MEDS: TraZODone HCL 100 MG TABLET PO SCH (20:41)
[2020-03-24] MEDS: HALOPERIDOL 5 MG TABLET PO PRN (20:43)
[2020-03-25 08:06] VITALS: BP 120/66
[2020-03-25] MEDS: GABAPENTIN 300 MG CAPSULE PO SCH ×2 (08:50→17:27)
[2020-03-25] MEDS: DULoxetine HCL 60 MG CAPSULE PO SCH (08:50)
[2020-03-25] MEDS: ESTRADIOL 1 MG TABLET PO SCH ×3 (08:51→17:27)
[2020-03-25] MEDS: IBUPROFEN 400 MG TABLET PO PRN (08:51)
[2020-03-25] MEDS: LORazepam 2 MG TABLET PO PRN ×2 (12:27→17:45)
[2020-03-25] MEDS: HALOPERIDOL 5 MG TABLET PO PRN ×2 (12:27→17:45)
[2020-03-25] MEDS: SPIRONOLACTONE 50 MG TABLET PO SCH ×2 (13:21→17:27)
[2020-03-25] MEDS: TraZODone HCL 100 MG TABLET PO SCH (20:45)
[2020-03-26 08:10] VITALS: BP 101/63
[2020-03-26] MEDS: DULoxetine HCL 60 MG CAPSULE PO SCH (08:55)
[2020-03-26] MEDS: GABAPENTIN 300 MG CAPSULE PO SCH ×2 (08:55→16:16)
[2020-03-26] MEDS: ESTRADIOL 1 MG TABLET PO SCH ×3 (08:56→16:16)
[2020-03-26] MEDS: SPIRONOLACTONE 50 MG TABLET PO SCH ×2 (08:56→16:16)
[2020-03-26] MEDS: LORazepam 2 MG TABLET PO PRN (13:28)
[2020-03-26] MEDS: HALOPERIDOL 5 MG TABLET PO PRN (13:28)
[2020-03-26 16:12] VITALS: BP 102/65
[2020-03-26] MEDS: TraZODone HCL 100 MG TABLET PO SCH (20:07)
[2020-03-27 05:26] VITALS: BP 121/63
[2020-03-27 08:32] VITALS: BP 118/66
[2020-03-27] MEDS: GABAPENTIN 300 MG CAPSULE PO SCH ×2 (08:47→16:07)
[2020-03-27] MEDS: ESTRADIOL 1 MG TABLET PO SCH ×3 (08:48→16:07)
[2020-03-27] MEDS: DULoxetine HCL 60 MG CAPSULE PO SCH (08:48)
[2020-03-27] MEDS: SPIRONOLACTONE 50 MG TABLET PO SCH ×2 (08:48→16:07)
[2020-03-27 16:04] VITALS: BP 108/67
[2020-03-27] MEDS: TraZODone HCL 100 MG TABLET PO SCH (20:15)
[2020-03-28 01:40] VITALS: BP 106/65
[2020-03-28] MEDS: LORazepam 2 MG TABLET PO PRN ×2 (01:44→11:03)
[2020-03-28] MEDS: ZOLPIDEM TARTRATE 10 MG TABLET PO PRN (01:46)
[2020-03-28] MEDS: HALOPERIDOL 5 MG TABLET PO PRN ×2 (01:50→11:03)
[2020-03-28 08:33] VITALS: BP 105/65
[2020-03-28] MEDS: GABAPENTIN 300 MG CAPSULE PO SCH ×2 (09:35→16:32)
[2020-03-28] MEDS: ESTRADIOL 1 MG TABLET PO SCH ×3 (09:35→16:32)
[2020-03-28] MEDS: DULoxetine HCL 60 MG CAPSULE PO SCH (09:35)
[2020-03-28] MEDS: SPIRONOLACTONE 50 MG TABLET PO SCH ×2 (09:37→16:32)
[2020-03-28] MEDS: HYPROMELLOSE 0.5% 15 ML OPHTHALMIC SOLUTION OU PRN (09:38)
[2020-03-28] MEDS: TraZODone HCL 100 MG TABLET PO SCH (20:38)
[2020-03-28 22:04] VITALS: BP 115/76
[2020-03-29] MEDS: ZOLPIDEM TARTRATE 10 MG TABLET PO PRN (01:28)
[2020-03-29] MEDS: LORazepam 2 MG TABLET PO PRN ×2 (01:28→18:32)
[2020-03-29 03:36] VITALS: BP 105/65
[2020-03-29 08:23] VITALS: BP 119/74
[2020-03-29] MEDS: DULoxetine HCL 60 MG CAPSULE PO SCH (08:28)
[2020-03-29] MEDS: SPIRONOLACTONE 50 MG TABLET PO SCH ×2 (08:28→16:14)
[2020-03-29] MEDS: ESTRADIOL 1 MG TABLET PO SCH ×3 (08:28→16:14)
[2020-03-29] MEDS: GABAPENTIN 300 MG CAPSULE PO SCH ×2 (08:29→16:14)
[2020-03-29 16:04] VITALS: BP 117/72
[2020-03-29] MEDS: TraZODone HCL 100 MG TABLET PO SCH (21:08)
[2020-03-30 08:16] VITALS: BP 110/59
[2020-03-30] MEDS: ESTRADIOL 1 MG TABLET PO SCH ×3 (09:46→16:19)
[2020-03-30] MEDS: GABAPENTIN 300 MG CAPSULE PO SCH ×2 (09:46→16:19)
[2020-03-30] MEDS: SPIRONOLACTONE 50 MG TABLET PO SCH ×2 (09:46→16:20)
[2020-03-30] MEDS: DULoxetine HCL 30 MG CAPSULE PO SCH (09:47)
[2020-03-30 16:04] VITALS: BP 125/83
[2020-03-30] MEDS: TraZODone HCL 100 MG TABLET PO SCH (20:31)
[2020-03-30] MEDS: ZOLPIDEM TARTRATE 10 MG TABLET PO PRN (20:32)
[2020-03-31] MEDS: LORazepam 2 MG TABLET PO PRN ×2 (03:10→20:18)
[2020-03-31 08:30] VITALS: BP_SYST 114; BP_SYST 93; BP_DIAS 55; BP_DIAS 64
[2020-03-31] MEDS: DULoxetine HCL 30 MG CAPSULE PO SCH (09:17)
[2020-03-31] MEDS: ESTRADIOL 1 MG TABLET PO SCH ×3 (09:17→16:42)
[2020-03-31] MEDS: GABAPENTIN 300 MG CAPSULE PO SCH ×2 (09:17→16:42)
[2020-03-31] MEDS: SPIRONOLACTONE 50 MG TABLET PO SCH ×2 (09:17→16:42)
[2020-03-31 16:15] VITALS: BP 118/61
[2020-03-31] MEDS: TraZODone HCL 100 MG TABLET PO SCH (20:17)
[2020-03-31] MEDS: ZOLPIDEM TARTRATE 10 MG TABLET PO PRN (21:34)
[2020-04-01 05:49] VITALS: BP 103/64
[2020-04-01] MEDS: GABAPENTIN 300 MG CAPSULE PO SCH ×2 (09:33→16:45)
[2020-04-01] MEDS: SPIRONOLACTONE 50 MG TABLET PO SCH ×2 (09:33→16:44)
[2020-04-01] MEDS: DULoxetine HCL 30 MG CAPSULE PO SCH (09:33)
[2020-04-01] MEDS: ESTRADIOL 1 MG TABLET PO SCH ×3 (09:34→16:44)
[2020-04-01 09:54] VITALS: BP 125/70
[2020-04-01 16:13] VITALS: BP 122/68
[2020-04-01] MEDS: TraZODone HCL 100 MG TABLET PO SCH (20:13)
[2020-04-02 03:41] VITALS: BP 105/67
[2020-04-02 08:13] VITALS: BP 128/75
[2020-04-02] MEDS: ESTRADIOL 1 MG TABLET PO SCH ×2 (08:26→12:05)
[2020-04-02] MEDS: GABAPENTIN 300 MG CAPSULE PO SCH (08:27)
[2020-04-02] MEDS: SPIRONOLACTONE 50 MG TABLET PO SCH (08:27)
[2020-04-02] MEDS: DULoxetine HCL 30 MG CAPSULE PO SCH (08:27)
[2020-04-02] MEDS ORDERED: SPIR100T5 PO (10:20)
[2020-04-02] MEDS ORDERED: ESTR2TAB PO (10:22)
[2020-04-02] MEDS: HYPROMELLOSE 0.5% 15 ML OPHTHALMIC SOLUTION OU PRN (10:50)
[2020-04-02] MEDS: IBUPROFEN 400 MG TABLET PO PRN (12:04)
[2020-04-02] MEDS ORDERED: DULO30CA2 PO (12:22)
== END 2020-04-02 13:27 | disposition home or self-care (01) | DRG 885 ==
LOC: EMS 21:35 → 3EX 03-12 11:55 → 3EI 03-12 20:39 → 3EC 03-13 18:57 → 3EI 03-20 17:12 → 3EC 03-21 11:26 → 3EI 03-23 21:30
PROVIDERS: ADMIT Psychiatry & Neurology Psychiatry; ATTEND Psychiatry & Neurology Psychiatry
DX: F33.2 Major depressive disorder, recurrent severe without psychotic features (principal); R45.851 Suicidal ideations; E66.9 Obesity, unspecified; E78.5 Hyperlipidemia, unspecified; F10.10 Alcohol abuse, uncomplicated; F43.10 Post-traumatic stress disorder, unspecified; K21.9 Gastro-esophageal reflux disease without esophagitis; Z59.0 Homelessness; Z79.890 Hormone replacement therapy; Z91.410 Personal history of adult physical and sexual abuse; Z91.5 Personal history of self-harm; Z68.31 Body mass index [BMI] 31.0-31.9, adult
CPT/HCPCS: 70450; 71101; 84460; 86803; 87081; 87340; 99291; G0480; J1200; J1630; J2060

== ENCOUNTER 2020-04-04 21:28 | Emergency (ER) | payer MEDICAID ==
[~2020-04-04] VITALS: Ht 175.3 cm; Wt 97.7 kg
[~2020-04-04 21:28] MED LIST changes: +DULO30CA2 PO; +ESTR2TAB PO; +SPIR100T5 PO
[2020-04-04 21:48] VITALS: BP 134/80
[2020-04-04 22:16] LABS: BASOPHILS % (AUTO) 0.6 % (0.0-2.0); EOSINOPHILS % (AUTO) 1.9 % (1.0-6.0); HEMATOCRIT 43.5 % (36-46); HEMOGLOBIN 14.8 g/dL (12.0-16.0); LYMPHOCYTES # (AUTO) 1.9 K/uL (1.0-4.8); LYMPHOCYTES % (AUTO) 20.9 % (22.0-44.0); MEAN CORPUSCULAR HEMOGLOBIN 31.3 pg (26.0-34.0); MEAN CORPUSCULAR HGB CONC 34.1 G/dL (31.0-37.0); MEAN CORPUSCULAR VOLUME 92 fL (80-100); MONOCYTES # (AUTO) 0.7 K/uL (0.1-1.0); NEUTROPHILS # (AUTO) 6.2 K/uL (1.8-7.7); NEUTROPHILS % (AUTO) 68.6 % (40.0-70.0); PLATELET COUNT (AUTO) 306 K/uL (150-450); RED BLOOD CELL COUNT(AUTO) 4.74 MIL/uL (4.00-5.20); RED CELL DISTRIBUTION WIDTH 13.2 % (11.5-14.5)
[2020-04-04 22:19] LABS: AMPHET/METH SCREEN,URINE NEGATIVE (NEGATIVE); BARBITURATE SCREEN, URINE NEGATIVE (NEGATIVE); BENZODIAZEPINES SCREEN,URINE NEGATIVE (NEGATIVE); CANNABINOID SCREEN,URINE POSITIVE (NEGATIVE); COCAINE SCREEN,URINE NEGATIVE (NEGATIVE); METHADONE SCREEN, URINE NEGATIVE (NEGATIVE); OPIATE SCREEN,URINE NEGATIVE (NEGATIVE)
[2020-04-04 22:24] LABS: PHENCYCLIDINE SCREEN,URINE NEGATIVE (NEGATIVE)
[2020-04-04 22:27] LABS: ANION GAP 10 mmol/L (8-16); CALCIUM, TOTAL 8.8 mg/dL (8.8-10.5); CARBON DIOXIDE 27 mmol/L (22-29); CHLORIDE 107 mmol/L (98-107); GLOMERULAR FILTR. RATE CALC > 60 mL/min (>60); GLUCOSE,RANDOM 136 mg/dL (70-110); POTASSIUM 3.8 mmol/L (3.5-5.1); SODIUM SERUM 144 mmol/L (136-145); UREA NITROGEN, BLOOD 17 mg/dL (7-18)
[2020-04-04 22:35] LABS: ALANINE AMINOTRANSFERASE 27 U/L (12-78); ALKALINE PHOSPHATASE 57 U/L (46-116); ASPARTATE AMINOTRANSFERASE 12 U/L (15-37); BILIRUBIN,TOTAL 0.3 mg/dL (0.1-1.0); TOTAL PROTEIN, SERUM 7.2 g/dL (6.4-8.2)
== END 2020-04-04 23:26 | disposition home or self-care (01) ==
LOC: EMS 21:28
DX: F32.9 Major depressive disorder, single episode, unspecified (principal)
CPT/HCPCS: 36415; 80053; 80307; 85025; 99285; G0480